=== PATIENT | female | born 1975 | race Asian ===

== ENCOUNTER → 2024-03-07 | Outpatient (CLI) | payer OTHER, SELFPAY ==
--- NOTE | 2024-03-07 07:45 | XR_ITS ---
Exam: MRI knee without contrast, left complete Date and time of exam: March 07, 2024 0738 hours INDICATIONS: Left knee stiffness instability pain decreased range of motion 9 months Technique: Multiple axial, coronal, and sagittal sections on the knee have been obtained. T2-Weighted sagittal, fat-suppressed images, TR 3,500, TE 62, T2 weighted coronal fat-saturated images, TR 3,500, TE 62 Proton density sagittal sections, TR 1800, TE 31. T-1 weighted coronal images, TR 524, TE 13.0 Findings: Medial meniscus anterior horn intact. Medial meniscus, body complex vertical and horizontal linear tears, communicating inferior articular surface. Posterior horn medial meniscus complex vertical and horizontal linear tears communicating inferior articular surface. Lateral meniscus anterior horn is intact Lateral meniscus, body is intact Posterior horn lateral meniscus is intact Anterior cruciate ligament moderate sprain Posterior cruciate ligament appears intact. Knee effusion is prominent Quadriceps and patellar tendons appear intact. There is no evidence of tendinosis. Inflammatory change or fracture of Hoffa's fat pad is not seen. Medial patellar facet demonstrates moderate thinning. Lateral patellar facet cartilage demonstrates moderate thinning. Trochlear cartilage demonstrates moderate thinning. Significant fissure defect in the cartilage lateral patellar facet near the median eminence, axial image 10 Marrow signal adequate. Medial collateral ligament appears intact. Meniscocapsular separation body the medial meniscus Illiotibial band and fibular collateral ligament are intact. Biceps femoris tendons appear intact. Medial femoral condylar articular cartilage demonstrates moderate thinning. Lateral femoral condylar articular cartilage demonstratesmoderate thinning. Tibial plateau cartilage demonstrates moderate thinning. Impression: Complex tear as body and posterior horn medial meniscus Meniscocapsular separation body the medial meniscus Moderate sprain anterior cruciate ligament Significant fissure defect in the cartilage lateral patellar facet
== END | disposition home or self-care (01) ==
PROVIDERS: PCP Physician Assistant; Referring Provider Physician Assistant; Visit Provider Physician Assistant
DX: S83.242A Other tear of medial meniscus, current injury, left knee, initial encounter (principal); S83.512A Sprain of anterior cruciate ligament of left knee, initial encounter; X58.XXXA Exposure to other specified factors, initial encounter; M94.8X8 Other specified disorders of cartilage, other site
CPT/HCPCS: 73721